=== PATIENT | female | born 2000 | race Asian ===

== ENCOUNTER 2020-04-17 19:38 | Emergency (ER) | payer OTHER ==
[~2020-04-17] VITALS: Ht 157.5 cm; Wt 40.3 kg
[2020-04-17] MEDS ORDERED: LACTATED RINGERS 1,000 ML IVBOLUS ONE (20:00)
[2020-04-17] MEDS ORDERED: ONDANSETRON 2MG/ML, 2ML IVPush ONE (20:00)
[2020-04-17] MEDS ORDERED: SODIUM CHLORIDE FLUSH 10ML SYR IVF ONE (20:00)
--- NOTE | 2020-04-17 20:20 | NUR ---
PT AMBULATED TO RESTROOM WITH STEADY GAIT TO PROVIDE URINE SAMPLE.
[2020-04-17] MEDS ORDERED: ONDANSETRON 2MG/ML, 2ML ONE (20:32)
[2020-04-17 20:42] LABS: BASOPHILS % (AUTO) 0 % (0-1); EOSINOPHILS % (AUTO) 1 % (1-7); LYMPHOCYTES % (AUTO) 23 % (22-44); MEAN CORPUSCULAR HEMOGLOBIN 27.7 pg (27.0-34.8); MONOCYTES % (AUTO) 8 % (2-9); NEUTROPHILS % (AUTO) 67 % (42-75); PLATELET COUNT 267 x10^3/uL (130-400); RED BLOOD COUNT 4.84 x10^6/uL (3.82-5.3); RED CELL DISTRIBUTION WIDTH 21.5 % (9.6-15.2)
--- NOTE | 2020-04-17 20:45 | NUR ---
PIV PLACED, LABS DRAWN AND SENT TO LAB WITH LAB SLIP. IVF RUNNING, TALENT ACQUISITION LEAD PER MAY. PT CONNECTED TO MONITORING. WARM BLANKET PROVIDED. SO AT BEDSIDE.
[2020-04-17 20:47] LABS: MICROSCOPIC INDICATED
[2020-04-17 20:49] LABS: ALANINE AMINOTRANSFERASE 19 U/L (12-78); ALBUMIN 3.9 g/dL (3.4-5.0); ANION GAP 11 mmol/L (5-15); CALCIUM 9.3 mg/dL (8.5-10.1); CHLORIDE 106 mmol/L (98-107); CREATININE 0.73 mg/dL (0.55-1.02)
[2020-04-17 21:04] LABS: MD MORPH REVIEW ONLY
[2020-04-17 21:06] LABS: ALKALINE PHOSPHATASE 59 U/L (45-117); ANISOCYTOSIS 1+; BILIRUBIN,TOTAL 0.5 mg/dL (0.2-1.0); OVALOCYTES 1+
[2020-04-17 21:07] LABS: <PLATELET ESTIMATE> ADEQUATE; <PLT MORPHOLOGY> NORMAL PLT MORPH
[2020-04-17] MEDS ORDERED: CEFTRIAXONE PMX 1GM/50ML 50 ML ONE (21:17)
--- NOTE | 2020-04-17 21:17 | NUR ---
MD AT BEDSIDE TO UPDATE PT ON POC.
--- NOTE | 2020-04-17 21:20 | NUR ---
PT TO US
[2020-04-17] MEDS ORDERED: CEFTRIAXONE PMX 1GM/50ML 50 ML IV ONE (21:30)
[2020-04-17 21:45] VITALS: BP 100/65
== END 2020-04-17 22:13 | disposition home or self-care (01) ==
LOC: ED 20:21
DX: O23.11 Infections of bladder in pregnancy, first trimester (principal); O21.0 Mild hyperemesis gravidarum; Z3A.01 Less than 8 weeks gestation of pregnancy
CPT/HCPCS: 36415; 76801; 80053; 81001; 84702; 85025; 87086; 96361; 96374; 96375; 99284; J0696; J2405; J7120

== ENCOUNTER 2020-05-28 23:15 | Emergency (ER) | payer OTHER ==
[2020-05-28] MEDS ORDERED: MORPHINE SULFATE 4 MG/ML, 1ML ONE (23:24)
[2020-05-28] MEDS ORDERED: ONDANSETRON 2MG/ML, 2ML ONE (23:24)
[2020-05-28] MEDS ORDERED: SODIUM CHLORIDE 0.9% 1,000ML IVBOLUS ONE (23:30)
[2020-05-28] MEDS ORDERED: MORPHINE SULFATE 4 MG/ML, 1ML IVPush PRN (23:30)
[2020-05-28] MEDS ORDERED: SODIUM CHLORIDE FLUSH 10ML SYR IVF ONE (23:30)
[2020-05-28] MEDS ORDERED: ONDANSETRON 2MG/ML, 2ML IVPush ONE (23:30)
--- NOTE | 2020-05-28 23:42 | NUR ---
ULTRASOUND AT BEDSIDE WITH PATIENT. HEART TONES CHECKED AT BEDSIDE VIA DOPPLER. PATIENTS FETUS HAS HR OF [id number] WITH DECLINES TO 103-108. PT'S HEART RATE 98 AT TIME OF DOPPLER CHECK. PT STATED THAT SHE HAD UTI AT 10 WKS GESTATIONAL AGE, TOOK ANTIBIOTICS AT HOME SEEN IN ED. PT STATED COMPLIANCE WITH ANTIBIOTIC THERAPY. PT STATED THAT SHE HAD FOLLOW UP WITH OB AT 12 WEEKS WITH NO COMPLICATIONS.
[2020-05-28 23:43] LABS: BASOPHILS % (AUTO) 0 % (0-1); EOSINOPHILS % (AUTO) 1 % (1-7); LYMPHOCYTES % (AUTO) 30 % (22-44); MEAN CORPUSCULAR HEMOGLOBIN 29.3 pg (27.0-34.8); MEAN CORPUSCULAR HGB CONC 34.2 g/dL (32.4-35.8); MEAN PLATELET VOLUME 7.6 fL (7.4-10.4); MONOCYTES % (AUTO) 8 % (2-9); NEUTROPHILS % (AUTO) 61 % (42-75); PLATELET COUNT 285 x10^3/uL (130-400); RED CELL DISTRIBUTION WIDTH 17.9 % (9.6-15.2)
[2020-05-28 23:48] LABS: ALANINE AMINOTRANSFERASE 18 U/L (12-78); ALBUMIN 3.3 g/dL (3.4-5.0); ANION GAP 9 mmol/L (5-15); CALCIUM 8.7 mg/dL (8.5-10.1); CHLORIDE 104 mmol/L (98-107); CREATININE 0.59 mg/dL (0.55-1.02)
[2020-05-29 00:04] LABS: ALKALINE PHOSPHATASE 55 U/L (45-117); BILIRUBIN,TOTAL 0.4 mg/dL (0.2-1.0); TOTAL PROTEIN 7.8 g/dL (6.4-8.2)
[2020-05-29 00:17] LABS: MD MORPH REVIEW ONLY
--- NOTE | 2020-05-29 00:17 | NUR ---
IN AND OUT CATH PERFORMED, PT TOLERATED WELL. URINE COLLECTED AND SENT TO LAB.
[2020-05-29 00:18] LABS: <PLATELET ESTIMATE> ADEQUATE; <PLT MORPHOLOGY> NORMAL PLT MORPH; ANISOCYTOSIS 1+; OVALOCYTES 1+
--- NOTE | 2020-05-29 00:39 | NUR ---
PT UPDATED ON PLAN OF CARE. NO NOTED ADDITIONAL NEEDS. VITAL SIGNS STABLE. WILL CONTINUE TO MONITOR. PT STATED PAIN HAS IMPROVED AND SYMPTOMS HAVE RESOLVED.
[2020-05-29 00:53] LABS: MICROSCOPIC INDICATED
--- NOTE | 2020-05-29 01:25 | NUR ---
UPDATED PATIENT ON PLAN OF CARE. PATIENT DENIES ANY ADDITIONAL NEEDS AT THIS TIME. WILL CONTINUE TO MONITOR. VSS.
[2020-05-29 02:09] VITALS: BP 92/57
--- NOTE | 2020-05-29 02:10 | NUR ---
PATIENT CLEARED FOR DISCHARGE. NO NOTED ACUTE DISTRESS. TOLERATING INTERVENTIONS WELL. PATIENT DENIES ANY ADDITIONAL QUESTIONS AT THIS TIME. PATIENT VERBALIZED UNDERSTANDING OF SELF CARE AND FOLLOW UP CARE AT HOME. PATIENT AMBULATORY TO DISCHARGE WITHOUT COMPLICATIONS WITH BELONIGNGS.
== END 2020-05-29 02:12 | disposition home or self-care (01) ==
LOC: ED 05-29 01:16
DX: O26.892 Other specified pregnancy related conditions, second trimester (principal); R31.29 Other microscopic hematuria; R11.2 Nausea with vomiting, unspecified; R10.9 Unspecified abdominal pain; M54.5 Low back pain; Z3A.16 16 weeks gestation of pregnancy
CPT/HCPCS: 36415; 76815; 80053; 81001; 84702; 85025; 86901; 87086; 96361; 96374; 96375; 99284; J2270; J2405; J7030